=== PATIENT | male | born 1990 | race Two or more races ===

== ENCOUNTER → 2020-01-27 | Outpatient (CLI) | payer OTHER | END | disposition home or self-care (01) | LOC: OFIC 805 13:00 | PROVIDERS: ATTEND Otolaryngology Otology & Neurotology | DX: J30.89 Other allergic rhinitis (principal); J34.89 Other specified disorders of nose and nasal sinuses; H93.8X1 Other specified disorders of right ear; H61.21 Impacted cerumen, right ear ==

== ENCOUNTER 2020-03-30 12:52 | Outpatient (CLI) | payer OTHER | END 2020-03-30 17:14 | disposition home or self-care (01) | LOC: OFIC 805 12:52 | PROVIDERS: ATTEND Otolaryngology Otology & Neurotology | DX: J30.89 Other allergic rhinitis (principal); J34.89 Other specified disorders of nose and nasal sinuses ==